=== PATIENT | male | born 1970 | race Caucasian/White ===

== ENCOUNTER 2022-07-16 09:26 | Emergency (ER) | payer OTHER ==
[~2022-07-16] VITALS: Ht 185.4 cm; Wt 124.7 kg
[2022-07-16 10:01] LABS: BASO % 0.4 % (0.0-1.0); EOS # 0.1 10*3/uL (0.0-0.4); EOS % 0.6 % (1.0-4.0); HEMATOCRIT 51.8 % (42.0-52.0); LYMPH # 1.1 10*3/uL (1.3-4.4); LYMPH % 13.2 % (27.0-41.0); MEAN CELL VOLUME 90.9 fl (80.0-94.0); MEAN CORPUSCULAR HGB 31.4 pg (27.0-31.0); MEAN CORPUSCULAR HGB CONC 34.6 g/dl (33.0-37.0); MEAN PLATELET VOLUME 11.2 fl (9.6-12.3); MONO # 0.7 10*3/uL (0.1-1.0); MONO % 8.9 % (3.0-9.0); NEUT # 6.1 10*3/uL (2.3-7.9); NEUT % 76.5 % (47.0-73.0); PLATELET COUNT AUTOMATED 84 10*3/uL (130-400); RED CELL DISTRI WIDTH 13.6 % (0-14.5)
[2022-07-16 10:14] LABS: ACT PARTIAL THROMBO TIME 27.6 SECONDS (20.0-32.1); INTERNATIONAL NORM RATIO 1.1 (2.0-3.5)
[2022-07-16 10:17] LABS: ALKALINE PHOSPHATASE 72 U/L (45-117); BUN 14 mg/dl (7-24); CHLORIDE 107 mmol/L (98-107); CREATININE 1.24 mg/dL (0.70-1.30); POTASSIUM 3.9 mmol/L (3.5-5.1); SGOT/AST 14 IU/L (3-35); SGPT/ALT 22 U/L (12-78); SODIUM 140 mmol/L (136-145); TOTAL PROTEIN 6.7 gm/dL (6.4-8.2)
[2022-07-16 10:22] LABS: ETHYL ALCOHOL < 3.0 mg/dl (<3)
[2022-07-17] MEDS ORDERED: ALDACTONE25 M1 PO (14:20)
[2022-07-17] MEDS ORDERED: VITAMIN B121000 MC1 PO (14:21)
[2022-07-17] MEDS ORDERED: VITAMIN D31250 MC1 PO (14:22)
[2022-07-17] MEDS ORDERED: FUROSEMIDE40 MG PO (14:22)
[2022-07-17] MEDS ORDERED: LEXAPRO10 MG PO (14:23)
[2022-07-17] MEDS ORDERED: LIPITOR40 MG PO (14:23)
[2022-07-17] MEDS ORDERED: ELIQUIS5 M1 PO (14:24)
[2022-07-17] MEDS ORDERED: CARVEDILOL25 MG PO (14:24)
[2022-07-17] MEDS ORDERED: LISINOPRIL40 MG PO (14:24)
== END 2022-07-16 10:59 | disposition home or self-care (01) ==
LOC: ED 09:26
PROVIDERS: Emergency Medicine
DX: S59.912A Unspecified injury of left forearm, initial encounter (principal); F17.200 Nicotine dependence, unspecified, uncomplicated; W18.39XA Other fall on same level, initial encounter; Y93.89 Activity, other specified; Y92.89 Other specified places as the place of occurrence of the external cause; Y99.8 Other external cause status